=== PATIENT | male | born 1960 | race Hispanic/Latino ===

== ENCOUNTER 2020-05-06 20:32 | Observation (INO) | payer MEDICAID ==
[2020-05-06] MEDS ORDERED: dexAMETHasone 20 MG/5 ML VIAL IV ONE (20:38)
[2020-05-06] MEDS ORDERED: EPINEPHrine RACEMIC 2.25% 0.5ML NEBU IH ONE (20:44)
--- NOTE | 2020-05-06 20:50 | Emergency Department Report ---
HPI - General Time Seen by Provider: 05/06/20 20:35 - HPI HPI: Room 25 The patient is a 59-year-old male present with a chief complaint of allergic reaction. The patient was stung by a hornet on his left index finger approximately 1 hour prior to arrival. Patient developed urticaria swelling of the face and throat and difficulty breathing. EMS was called and administered albuterol, epinephrine IM and Benadryl 50 mg. No steroids were given by EMS. Patient complains of difficulty breathing and denies other complaint ED Past Medical Hx - Past Medical History Previous Medical History?: No - Surgical History Past Surgical History?: No - Family History Family history: no significant - Social History Smoking Status: Current Every Day Smoker Substance Use Type: Alcohol - Medications Home Medications: Home Medications Medication Instructions Recorded Confirmed Last Taken Type No Known Home Medications [No 09/20/15 09/20/15 Unknown History Reported Home Medications] ED Review of Systems ROS: Stated complaint: ALLERGIC REACTION Other details as noted in HPI Respiratory: shortness of breath Skin: rash, pruritus Physical Exam - Physical Exam Physical Exam: GENERAL: The patient is well-developed well-nourished male lying on stretcher with obvious facial swelling. [] HEENT: Normocephalic. Atraumatic. Extraocular motions are intact. Swelling of both lips. Oropharynx clear NECK: Supple. Trachea midline. No stridor CHEST/LUNGS: Clear to auscultation. There is no respiratory distress noted. HEART/CARDIOVASCULAR: Regular. There is no tachycardia. There is no gallop rub or murmur. ABDOMEN: Abdomen is soft, nontender. Patient has normal bowel sounds. There is no abdominal distention. SKIN: There is urticaria NEURO: The patient is awake, alert, and oriented. The patient is cooperative. The patient has normal speech MUSCULOSKELETAL: There is no evidence of acute injury. ED Course - Reevaluation(s) Reevaluation #1: 05/06/20 21:24 Patient resting comfortably. Patient states he is feeling improved after medication ED Medical Decision Making - Lab Data Result diagrams: 05/06/20 20:48 05/06/20 20:48 Laboratory Tests 05/06/20 08 20:48 20:48 WBC 6.4 RBC 4.76 Hgb 16.4 H Hct 47.2 H MCV 99 H MCH 35 H MCHC 35 H RDW 13.3 Plt Count 281 Lymph % (Auto) 40.9 H [place] % (Auto) 12.2 H Eos % (Auto) 1.1 Baso % (Auto) 0.5 Lymph # 2.6 [place] # 0.8 Eos # 0.1 Baso # 0.0 Seg Neutrophils % 45.3 Seg Neutrophils # 2.9 Sodium 135 L Potassium 3.7 Chloride 95.0 L Carbon Dioxide 25 Anion Gap 19 BUN 7 L Creatinine 0.7 L Estimated GFR > 60 BUN/Creatinine Ratio 10 Glucose 124 H Calcium 8.4 Total Creatine Kinase 170 CK-MB (CK-2) 4.4 H CK-MB (CK-2) Rel Index 2.5 Troponin T < 0.010 - Radiology Data Radiology results: report reviewed (Lateral soft tissue neck x-ray, chest x- ray), image reviewed (Lateral soft tissue neck x-ray, chest x-ray) interpreted by me: Lateral soft tissue neck x-ray-no evidence of foreign body, epiglottitis or prevertebral swelling Chest x-ray-no focal infiltrates, no pneumothorax, no foreign body Findings [facility] [address] [place] [address] XRay Report Signed Patient: SLOAN GUPTA MR#: [id number] 9 : 1960 Acct:[id number] Age/Sex: 59 / M ADM Date: 05/06/20 Loc: ED Attending Dr: Ordering Physician: BELIA MEDELLIN MD Date of Service: 05/06/20 Procedure(s): XR neck soft tissue Accession Number(s): [id number] cc: BELIA MEDELLIN MD Fluoro Time In Minutes: SOFT TISSUE NECK HISTORY: Allergic reaction COMPARISON: None. TECHNIQUE: AP and lateral view(s) of the neck obtained. FINDINGS: Epiglottis: No significant abnormality. Airway: No significant abnormality. Retropharyngeal soft tissues: No significant abnormality. 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 There has also been previous internal fixation of the mandible. Additional findings: None. IMPRESSION: 1. No acute findings. Signer Name: Steve Rubin MD Signed: 05/06/2020 9:38 PM Workstation Name: [id number] Transcribed By: SELENA Dictated By: Steve Rubin MD Electronically Authenticated By: Steve Rubin MD Signed Date/Time: 05/06/202137 DD/ 37 TD/TT: Findings [facility] [address] [place] [address] XRay Report Signed Patient: SLOAN GUPTA MR#: [id number] 9 : 1960 Acct:[id number] Age/Sex: 59 / M ADM Date: 05/06/20 Loc: ED Attending Dr: Order ing Physician: BELIA MEDELLIN MD Date of Service: 05/06/20 Procedure(s): XR chest 1V ap Accession Number(s): [id number] cc: BELIA MEDELLIN MD Fluoro Time In Minutes: CHEST 1 VIEW 05/06/2020 8:35 PM INDICATION / CLINICAL INFORMATION: Shortness of breath. COMPARISON: None available. FINDINGS: SUPPORT DEVICES: None. HEART / MEDIASTINUM: No significant abnormality. LUNGS / PLEURA: No significant pulmonary or pleural abnormality. No pneumothorax. ADDITIONAL FINDINGS: No significant additional findings. IMPRESSION: 1. No acute findings. Signer Name: Steve Rubin MD Signed: 05/06/2020 9:39 PM Workstation Name: [id number] Transcribed By: SELENA Dictated By: Steve Rubin MD Electronically Authenticated By: Steve Rubin MD Signed Date/Time: 05/06/202138 DD/ 38 TD/TT: - Differential Diagnosis Acute allergic reaction Critical care attestation.: If time is entered above; I have spent that time in minutes in the direct care of this critically ill patient, excluding procedure time. ED Disposition Clinical Impression: Acute allergic reaction, Hymenoptera sting Disposition: OP ADMIT IP TO THIS HOSP Is pt being admited?: Yes Does the pt Need Aspirin: No Condition: Fair Time of Disposition: 21:50 (Hospitalist paged (Dr Batista))
[2020-05-06 21:10] LABS: Basophils % (Auto) 0.5 % (0.0-1.8); Eosinophils # (Auto) 0.1 K/mm3 (0.0-0.4); Eosinophils % (Auto) 1.1 % (0.0-4.3); Hematocrit 47.2 % (35.5-45.6); Hemoglobin 16.4 gm/dl (11.8-15.2); Lymphocytes # (Auto) 2.6 K/mm3 (1.2-5.4); Lymphocytes % (Auto) 40.9 % (13.4-35.0); Mean Corpuscular HGB Conc 35 % (32-34); Mean Corpuscular Volume 99 fl (84-94); Monocytes # (Auto) 0.8 K/mm3 (0.0-0.8); Monocytes % (Auto) 12.2 % (0.0-7.3); Platelet Count 281 K/mm3 (140-440); Red Blood Count 4.76 M/mm3 (3.65-5.03); Red Cell Distribution Width 13.3 % (13.2-15.2)
[2020-05-06 21:43] LABS: Creatine Kinase MB 4.4 ng/mL (0.0-4.0)
--- NOTE | 2020-05-06 21:43 | XRay Report ---
SOFT TISSUE NECK HISTORY: Allergic reaction COMPARISON: None. TECHNIQUE: AP and lateral view(s) of the neck obtained. FINDINGS: Epiglottis: No significant abnormality. Airway: No significant abnormality. Retropharyngeal soft tissues: No significant abnormality. 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 There has also been previous internal fixati on of the mandible. Additional findings: None. IMPRESSION: 1. No acute findings. Signer Name: Steve Rubin MD Signed: 05/06/2020 9:38 PM Workstation Name: [id number] [id number]
--- NOTE | 2020-05-06 21:43 | XRay Report ---
CHEST 1 VIEW 05/06/2020 8:35 PM INDICATION / CLINICAL INFORMATION: Shortness of breath. COMPARISON: None available. FINDINGS: SUPPORT DEVICES: None. HEART / MEDIASTINUM: No significant abnormality. LUNGS / PLEURA: No significant pulmonary or pleural abnormality. No pneumothorax. ADDITIONAL FINDINGS: No significant additional findings. IMPRESSION: 1. No acute findings. Signer Name: Steve Rubin MD Signed: 05/06/2020 9:39 PM Workstation Name: [id number]
[2020-05-06 21:45] LABS: Blood Urea Nitrogen 7 mg/dL (9-20); Calcium 8.4 mg/dL (8.4-10.2); Hemolysis Index 14
[2020-05-06 21:46] LABS: BUN/Creatinine Ratio 10
[2020-05-07] MEDS ORDERED: diphenhydrAMINE 50 MG/ML VIAL IV PRN (00:01)
[2020-05-07] MEDS ORDERED: ACETAMINOPHEN 325 MG TAB PO PRN (00:02)
[2020-05-07] MEDS ORDERED: SODIUM CHLORIDE 0.9% 1000 ML 1,000 ML IV SCH (00:15)
--- NOTE | 2020-05-07 04:49 | History and Physical Report ---
History of Present Illness Date of examination: 05/06/20 Date of admission: 05/06/20 22:37 Chief complaint: Shortness of Breath and swelling of lips History of present illness: History of presenting illness, patient is a 59-year-old male who was stung by a hornet bee in the finger and subsequently developed shortness of breath with swelling of the lips and throat, there was no chest pain, no fever or chills, no headache and no nausea or vomiting. EMS was called and patient was given intramuscular epinephrine and IV Benadryl and brought to the emergency room. Past History Past Surgical History: No surgical history Social history: smoking Family history: no significant family history Medications and Allergies Allergies Allergy/AdvReac Type Severity Reaction Status Date / Time No Known Allergies Allergy Verified 09/20/15 21:55 Home Medications Medication Instructions Recorded Confirmed Last Taken Type No Known Home Medications [No 09/20/15 09/20/15 Unknown History Reported Home Medications] Active Meds: Active Medications Acetaminophen (Tylenol) 650 mg PO Q4H PRN PRN Reason: Fever >101 Diphenhydramine HCl (Benadryl) 25 mg IV Q6H PRN PRN Reason: Itching Sodium Chloride (Nacl 0.9% 1000 Ml) 1,000 mls @ 125 mls/hr IV DIRECT MARVIN Last Admin: 05/07/20 03:08 Dose: 125 mls/hr Documented by: Methylprednisolone Sodium Succinate (Solu-Medrol) 60 mg IV Q8HR MARVIN Review of Systems Constitutional: no weight loss, no weight gain, no fever, no chills, no sweats, no night sweats, no anorexia, no fatigue, no weakness, no malaise, no lethargy Eyes: bilateral: other (NO BILATERAL EYE SYMPTOM) Ears, nose, mouth and throat: sore throat, other (SWELLING OF THE LIPS) Cardiovascular: shortness of breath, no chest pain Respiratory: shortness of breath, no cough, no excessive sputum, no hemoptysis, no congestion, no wheezing Gastrointestinal: no abdominal pain, no nausea, no vomiting, no hematochezia Genitourinary Male: no hematuria, no flank pain, no discharge, no urinary frequency, no urinary hesitancy, no nocturia, no polyuria Rectal: no pain, no itching Musculoskeletal: no neck stiffness, no neck pain, no low back pain, no shooting leg pain, no leg numbness/tingling, no redness of joints, no hot joints, no morning stiffness, no muscle weakness, no muscle cramps, no myalgias Integumentary: no rash, no pruritis, no redness, no sores, no wounds, no jaundice, no bullae, no lesions, no darkening of skin, no depigmentation, no dryness Neurological: no paralysis, no weakness, no parathesias, no numbness, no tingling, no seizures, no syncope, no tremors, no vertigo, no headaches, no migraines, no convulsions, no change in speech, no change in mentation, no confusion Psychiatric: no anxiety, no sleep disturbances, no insomnia, no hypersomnia, no suicidal ideation, no confusion Endocrine: no cold intolerance, no heat intolerance, no polyphagia, no excessive thirst, no polydipsia, no polyuria, no nocturia, no palpatations Hematologic/Lymphatic: no easy bruising, no easy bleeding, no lymphadenopathy, no lymphedema Allergic/Immunologic: no persistent infections, no anaphylaxis Exam - Constitutional Vitals: Temp Pulse Resp BP Pulse Ox 97.9 F 98 H 18 152/88 91 05/07/20 02:47 05/07/20 02:47 05/07/20 02:47 05/07/20 02:47 05/07/20 02:47 General appearance: Present: mild distress - EENT Eyes: Present: PERRL, EOM intact. Absent: scleral icterus ENT: hearing intact, clear oral mucosa, other (SWOLLEN LIPS) - Neck Neck: Present: supple, normal ROM - Respiratory Respiratory effort: normal - Cardiovascular Rhythm: regular Heart Sounds: Present: S1 & S2. Absent: gallop, systolic murmur, diastolic murmur, click - Extremities Extremities: no ischemia, No edema Peripheral Pulses: within normal limits - Abdominal General gastrointestinal: Present: soft, non-tender, non-distended. Absent: tender, distended, rigid, absent bowel sounds, hepatomegaly, splenomegaly, mass, hernia Male genitourinary: Present: deferred - Rectal Rectal Exam: deferred HEART Score - HEART Score Age: 45-65 Risk factors: 1-2 risk factors Troponin: Troponin T < 0.010 ng/mL (0.00-0.029) 08/15/20 20:48 Troponin: < normal limit - Critical Actions Critical Actions: 0-3 pts:0.9-1.7%risk of adverse cardiac event.Candidate for discharge Results - Labs CBC & Chem 7: 05/06/20 20:48 05/06/20 20:48 Labs: Laboratory Last Values WBC 6.4 K/mm3 (4.5-11.0) 05/06/20 20:48 RBC 4.76 M/mm3 (3.65-5.03) 05/06/20 20:48 Hgb 16.4 gm/dl (11.8-15.2) H 05/06/20 20:48 Hct 47.2 % (35.5-45.6) H 05/06/20 20:48 MCV 99 fl (84-94) H 05/06/20 20:48 MCH 35 pg (28-32) H 05/06/20 20:48 MCHC 35 % (32-34) H 05/06/20 20:48 RDW 13.3 % (13.2-15.2) 05/06/20 20:48 Plt Count 281 K/mm3 (140-440) 05/06/20 20:48 Lymph % (Auto) 40.9 % (13.4-35.0) H 05/06/20 20:48 [place] % (Auto) 12.2 % (0.0-7.3) H 05/06/20 20:48 Eos % (Auto) 1.1 % (0.0-4.3) 05/06/20 20:48 Baso % (Auto) 0.5 % (0.0-1.8) 05/06/20 20:48 Lymph # 2.6 K/mm3 (1.2-5.4) 05/06/20 20:48 [place] # 0.8 K/mm3 (0.0-0.8) 05/06/20 20:48 Eos # 0.1 K/mm3 (0.0-0.4) 05/06/20 20:48 Baso # 0.0 K/mm3 (0.0-0.1) 05/06/20 20:48 Seg Neutrophils % 45.3 % (40.0-70.0) 05/06/20 20:48 Seg Neutrophils # 2.9 K/mm3 (1.8-7.7) 05/06/20 20:48 Sodium 135 mmol/L (137-145) L 05/06/20 20:48 Potassium 3.7 mmol/L (3.6-5.0) 05/06/20 20:48 Chloride 95.0 mmol/L (98-107) L 05/06/20 20:48 Carbon Dioxide 25 mmol/L (22-30) 05/06/20 20:48 Anion Gap 19 mmol/L 05/06/20 20:48 BUN 7 mg/dL (9-20) L 05/06/20 20:48 Creatinine 0.7 mg/dL (0.8-1.3) L 05/06/20 20:48 Estimated GFR > 60 ml/min 05/06/20 20:48 BUN/Creatinine Ratio 10 % 05/06/20 20:48 Glucose 124 mg/dL (75-100) H 05/06/20 20:48 Calcium 8.4 mg/dL (8.4-10.2) 05/06/20 20:48 Total Creatine Kinase 170 units/L (55-170) 05/06/20 20:48 CK-MB (CK-2) 4.4 ng/mL (0.0-4.0) H 05/06/20 20:48 CK-MB (CK-2) Rel Index 2.5 (0-4) 05/06/20 20:48 Troponin T < 0.010 ng/mL (0.00-0.029) 05/06/20 20:48 Conte/IV: Voiding Method Urinal IV Catheter Type [Left INT / Saline Lock Antecubital] Assessment and Plan - Patient Problems (1) Acute allergic reaction Current Visit: Yes Status: Acute Plan to address problem: 1 I.V SOLUMEDROL 2. I.V BENADRYL 3. I.V N/SALINE 4. OXYGEN BY N/CANNULA 5.PO PEPCID
[2020-05-07] MEDS ORDERED: methylPREDNISolone Sod Succinate 125 MG/2 ML INJ IV SCH (06:00)
[2020-05-07 08:00] VITALS: BP 148/82
[2020-05-07] MEDS ORDERED: FAMOTIDINE 20 MG TAB PO SCH (10:00)
--- NOTE | 2020-05-07 11:03 | Discharge Summary ---
Providers - Providers Date of Admission: 05/06/20 22:37 Date of discharge: 05/07/20 Attending physician: ADIEL BARNETT Primary care physician: YORDY YANG Hospitalization Reason for admission: Bee sting Condition: Fair Hospital course: 59-year-old male who was stung by a hornet bee in the finger and subsequently developed shortness of breath with swelling of the lips and throat, there was no chest pain, no fever or chills, no headache and no nausea or vomiting. EMS was called and patient was given intramuscular epinephrine and IV Benadryl and brought to the emergency room. He was started on antihistamines and steroids here. His rash has improved and lips swelling has resolved. His throat is back to normal. He tells me this is the first time he is having a reaction. He will need to see an allergy and immunology physician to know if he qualifies for immunotherapy. He will be given epi pen, antihistamines and steroid taper and discharged home today. He is a chronic tobacco smoker. I advised on need to stop tobacco abuse. A walk test was perfomed and his oxygen level remained above 93%. Disposition: DC-01 TO HOME OR SELFCARE - Discharge Diagnoses (1) Acute allergic reaction Status: Acute (2) Hymenoptera sting Status: Acute Core Measure Documentation - Palliative Care Palliative Care/ Comfort Measures: Not Applicable - Core Measures Any of the following diagnoses?: none Exam - Constitutional Vitals: Temp Pulse Resp BP Pulse Ox 97.4 F L 92 H 18 148/82 93 05/07/20 07:05 05/07/20 07:05 05/07/20 07:05 05/07/20 07:05 05/07/20 07:05 General appearance: Present: no acute distress, well-nourished - EENT Eyes: Present: PERRL ENT: hearing intact, clear oral mucosa - Neck Neck: Present: supple, normal ROM - Respiratory Respiratory effort: normal Respiratory: bilateral: CTA - Cardiovascular Heart Sounds: Present: S1 & S2. Absent: rub, click - Extremities Extremities: pulses symmetrical, No edema Peripheral Pulses: within normal limits - Abdominal General gastrointestinal: Present: soft, non-tender, non-distended, normal bowel sounds Male genitourinary: Present: normal - Integumentary Integumentary: Present: clear, warm, dry - Musculoskeletal Musculoskeletal: gait normal, strength equal bilaterally - Psychiatric Psychiatric: appropriate mood/affect, intact judgment & insight - Neurologic Neurologic: CNII-XII intact, moves all extremities Plan Additional Instructions: Carry epipen with you at all times. Continue steroid taper. Follow up with allergy and immunology in the office for consideration of need for immunotherapy to help reduce the recurrence of attacks. Stop tobacco abuse Follow up with: YORDY YANG MD [Primary Care Provider] - 3-5 Days Prescriptions: EPINEPHrine [Epipen] 0.3 mg IJ ONCE #2 auto.injct predniSONE 40 mg PO QDAY #5 tab
== END 2020-05-07 12:31 | disposition home or self-care (01) ==
LOC: ED 20:32 → 3A 22:37 → 3B-SURG 05-07
PROVIDERS: ADMIT Internal Medicine; ATTEND Internal Medicine
DX: T63.451A Toxic effect of venom of hornets, accidental (unintentional), initial encounter (principal); F17.200 Nicotine dependence, unspecified, uncomplicated; W57.XXXA Bitten or stung by nonvenomous insect and other nonvenomous arthropods, initial encounter; Y93.89 Activity, other specified; Y92.89 Other specified places as the place of occurrence of the external cause
CPT/HCPCS: 36415; 70360; 71045; 80048; 82550; 82553; 84484; 85025; 94644; 96361; 96374; 96375; 99285; G0378; J1100; J2930; J7030